=== PATIENT | male | born 1960 | race Caucasian/White ===

== ENCOUNTER 2019-06-25 18:43 | Emergency (ER) | payer MEDICAID ==
[~2019-06-25] VITALS: Ht 165.1 cm; Wt 70.0 kg
[2019-06-25 20:17] LABS: EOSINOPHILS % 0.6 % (0.0-5.0); HEMOGLOBIN. 13.2 g/dL (14.0-18.0); LYMPHOCYTES % 16.7 % (20.0-50.0); MEAN CORPUSCULAR HEMOGLOBIN 29.7 pg (28.0-32.0); MEAN CORPUSCULAR VOLUME 89.8 fL (80.0-94.0); MEAN PLATELET VOLUME 7.4 fl (7.4-10.4); NEUTROPHILS % 71.7 % (40.0-76.0); PLATELET 252 x1000/uL (130-400); RED BLOOD CELL COUNT 4.45 mill/uL (4.7-6.1); RED CELL DISTRIBUTION WIDTH 18.6 % (11.6-14.6)
[2019-06-25 20:18] LABS: CLARITY URINE CLEAR (CLEAR); COLOR URINE YELLOW (YELLOW); KETONES URINE NEGATIVE (NEGATIVE); LEUKOCYTE ESTERASE URINE NEGATIVE (NEGATIVE); NITRITE URINE NEGATIVE (NEGATIVE); OCCULT BLOOD URINE NEGATIVE (NEGATIVE); PH URINE 5.5 (4.5-8.0); PROTEIN URINE NEGATIVE (NEGATIVE); SPECIFIC GRAVITY URINE 1.005 (1.005-1.030); UROBILINOGEN URINE 0.2 E.U./dL (0.2-1.0)
[2019-06-25 20:22] LABS: CHLORIDE 108 mEq/L (98-107)
[2019-06-25 20:30] LABS: CREATINE KINASE 181 IU/L (39-308)
[2019-06-25 20:32] LABS: *AMPHETAMINES SCREEN URINE NEGATIVE (NEGATIVE)
[2019-06-25 20:33] LABS: *BARBITURATES SCREEN URINE NEGATIVE (NEGATIVE); *BENZODIAZEPINES SCREEN URINE NEGATIVE (NEGATIVE); *COCAINE SCREEN URINE NEGATIVE (NEGATIVE); METHADONE URINE SCREEN NEGATIVE (NEGATIVE); OPIATES URINE SCREEN NEGATIVE (NEGATIVE); PHENCYCLIDINE URINE SCREEN NEGATIVE (NEGATIVE)
[2019-06-25 20:34] LABS: CANNABINOID URINE SCREEN NEGATIVE (NEGATIVE)
[2019-06-25 20:46] LABS: ETHANOL BLOOD 384 mg/dL
[2019-06-25] MEDS ORDERED: SODIUM CHLORIDE 0.9% 1,000 ML IV ONE (21:42)
[2019-06-25] MEDS ORDERED: ONDANSETRON HCL 4MG/2ML INJ IV STA (21:42)
[2019-06-26 02:20] VITALS: BP 110/78
== END 2019-06-26 02:31 | disposition home or self-care (01) ==
LOC: ER 18:43
DX: F10.129 Alcohol abuse with intoxication, unspecified (principal); R73.03 Prediabetes; Z59.0 Homelessness; Y90.8 Blood alcohol level of 240 mg/100 ml or more
CPT/HCPCS: 36415; 70450; 71045; 80053; 80305; 80320; 81003; 82550; 85025; 96374; 99285; J2405; J7030; G0480

== ENCOUNTER 2019-06-27 23:32 | Emergency (ER) | payer MEDICAID ==
[~2019-06-27] VITALS: Ht 160 cm; Wt 52.0 kg
[2019-06-27] MEDS ORDERED: IBUPROFEN 600MG TABLET PO STA (23:46)
[2019-06-28 00:16] LABS: BASOPHILS % 0.5 % (0.0-2.0); EOSINOPHILS % 0.3 % (0.0-5.0); HEMATOCRIT. 39.3 % (42.0-52.0); MEAN CORPUSCULAR VOLUME 90.9 fL (80.0-94.0); MEAN PLATELET VOLUME 7.4 fl (7.4-10.4); MONOCYTES % 6.5 % (2.0-8.0); NEUTROPHILS % 82.7 % (40.0-76.0); PLATELET 225 x1000/uL (130-400); RED BLOOD CELL COUNT 4.32 mill/uL (4.7-6.1); RED CELL DISTRIBUTION WIDTH 18.2 % (11.6-14.6)
[2019-06-28 00:22] LABS: CHLORIDE 112 mEq/L (98-107)
[2019-06-28 00:41] LABS: ETHANOL BLOOD 345 mg/dL
[2019-06-28 09:00] VITALS: BP 110/60
== END 2019-06-28 09:20 | disposition home or self-care (01) ==
LOC: ER 23:32
DX: M79.604 Pain in right leg (principal); E11.9 Type 2 diabetes mellitus without complications; Z98.890 Other specified postprocedural states
CPT/HCPCS: 36415; 73562; 80053; 80320; 85025; 99285; G0480

== ENCOUNTER 2019-07-10 16:01 | Emergency (ER) | payer MEDICAID ==
[~2019-07-10] VITALS: Ht 172.7 cm; Wt 76.0 kg
[2019-07-10] MEDS ORDERED: IBUPROFEN 600MG TABLET PO ONE (17:00)
[2019-07-10 17:22] LABS: BASOPHILS % 0.8 % (0.0-2.0); EOSINOPHILS % 0.6 % (0.0-5.0); HEMATOCRIT. 35.3 % (42.0-52.0); HEMOGLOBIN. 11.7 g/dL (14.0-18.0); LYMPHOCYTES % 17.1 % (20.0-50.0); MEAN CORPUSCULAR HEMOGLOBIN 29.5 pg (28.0-32.0); MEAN CORPUSCULAR VOLUME 88.9 fL (80.0-94.0); MEAN PLATELET VOLUME 7.1 fl (7.4-10.4); MONOCYTES % 8.7 % (2.0-8.0); NEUTROPHILS % 72.8 % (40.0-76.0); PLATELET 202 x1000/uL (130-400); RED BLOOD CELL COUNT 3.98 mill/uL (4.7-6.1); RED CELL DISTRIBUTION WIDTH 17.6 % (11.6-14.6)
[2019-07-10 17:26] LABS: CHLORIDE 109 mEq/L (98-107)
[2019-07-10 18:32] VITALS: BP 100/61
== END 2019-07-10 19:45 | disposition home or self-care (01) ==
LOC: ER 16:01
DX: T87.89 Other complications of amputation stump (principal); S80.211A Abrasion, right knee, initial encounter; E11.9 Type 2 diabetes mellitus without complications; F17.210 Nicotine dependence, cigarettes, uncomplicated; Z89.511 Acquired absence of right leg below knee; W05.0XXA Fall from non-moving wheelchair, initial encounter; Y83.8 Other surgical procedures as the cause of abnormal reaction of the patient, or of later complication, without mention of misadventure at the time of the procedure; Y92.89 Other specified places as the place of occurrence of the external cause
CPT/HCPCS: 36415; 73560; 80053; 85025; 93970; 99285